=== PATIENT | female | born 1945 ===

== ENCOUNTER 2024-04-18 11:01 | Emergency (ER) | payer MEDICAID ==
[~2024-04-18] VITALS: Ht 160 cm; Wt 78.0 kg
[2024-04-18 12:00] LABS: BASOPHILS ABSOLUTE AUTO 0.06 K/mm3 (0.00-0.23); BASOPHILS PERCENT AUTO 1 % (0-2); EOSINOPHILS ABSOLUTE AUTO 0.01 K/mm3 (0.00-0.68); EOSINOPHILS PERCENT AUTO 0 % (0-6); Hematocrit 45.2 % (33.0-51.0); Hemoglobin 14.2 g/dL (11.5-16.0); IMMATURE GRAN ABSOLUTE AUTO 0.04 K/mm3 (0.00-0.10); IMMATURE GRAN PERCENT AUTO 0 % (0-1); LYMPHOCYTES ABSOLUTE AUTO 0.84 K/mm3 (0.84-5.20); LYMPHOCYTES PERCENT AUTO 7 % (21-46); MONOCYTES ABSOLUTE AUTO 0.94 K/mm3 (0.16-1.47); MONOCYTES PERCENT AUTO 7 % (4-13); Mean Corpuscular HGB 25.1 pg (26.0-34.0); Mean Corpuscular HGB Conc 31.4 g/dL (31.5-36.5); Mean Corpuscular Volume 80 fL (80-100); Mean Platelet Volume 12.5 fL (9.1-12.4); NEUTROPHILS ABSOLUTE AUTO 11.05 K/mm3 (1.96-9.15); NEUTROPHILS PERCENT AUTO 85 % (41-73); Platelet Count 202 K/mm3 (150-400); RDW Coefficient Variation 15.8 % (11.7-14.2); RDW Standard Deviation 45.4 fL (35.1-46.3); Red Blood Cell Count 5.65 M/mm3 (3.80-5.20); White Blood Cell Count 12.94 K/mm3 (4.00-11.30)
[2024-04-18 12:18] LABS: Albumin, Blood 3.6 g/dL (3.4-5.0); Albumin/Globulin Ratio 0.8 (0.8-1.8); Bilirubin, Total 1.4 mg/dL (0.1-1.0); Calcium, Blood 9.1 mg/dL (8.5-10.1); Creatinine, Blood 0.7 mg/dL (0.40-1.00); Globulin, Blood 4.4 g/dL (2.2-4.0)
[2024-04-18 12:26] LABS: Influenza A, PCR NEGATIVE (NEGATIVE); Influenza B, PCR NEGATIVE (NEGATIVE); Resp Syncytial Virus, PCR NEGATIVE (NEGATIVE); SARS-Cov-2 (COVID-19) PCR, MMC NEGATIVE (NEGATIVE)
[2024-04-18] MEDS ORDERED: MECL12.5 PO (12:51)
[2024-04-18] MEDS ORDERED: HYDR10 PO (12:51)
[2024-04-18] MEDS ORDERED: METF500 PO (12:51)
[2024-04-18] MEDS ORDERED: EZET10 PO (12:52)
[2024-04-18] MEDS ORDERED: CLOP75 PO (12:52)
[2024-04-18] MEDS ORDERED: AMLO10 PO (12:52)
[2024-04-18] MEDS ORDERED: LOSARTAN-HCTZ1 EACH PO (12:52)
[2024-04-18] MEDS ORDERED: ATOR40TA PO (12:53)
[2024-04-18] MEDS ORDERED: MONT10T PO (12:53)
[2024-04-18] MEDS ORDERED: Acetaminophen 325 MG TABLET PO ONE (14:10)
[2024-04-18] MEDS ORDERED: Ketorolac Tromethamine 30mg Vial IV ONE (14:10)
[2024-04-18] MEDS ORDERED: Azithromycin 250 MG Tab PO ONE (14:10)
[2024-04-18] MEDS ORDERED: CefTRIAXone Sodium 1,000 MG in NS 50 ML IV ONE (14:10)
[2024-04-18] MEDS ORDERED: AMOCLA875 PO (15:29)
[2024-04-18] MEDS ORDERED: AZIT250 PO (15:29)
== END 2024-04-18 16:04 | disposition home or self-care (01) ==
LOC: ER 11:01
PROVIDERS: Nurse Practitioner
DX: J18.9 Pneumonia, unspecified organism (principal); B34.9 Viral infection, unspecified; M79.10 Myalgia, unspecified site; D72.829 Elevated white blood cell count, unspecified; E11.9 Type 2 diabetes mellitus without complications; I10 Essential (primary) hypertension
CPT/HCPCS: 0241U; 70450; 71046; 80053; 82947; 84145; 84484; 85025; 93005; 93010; 96365; 96375; 99284-25; A9270; J0696; J1885

== ENCOUNTER 2024-12-14 11:30 | Emergency (ER) | payer MEDICAID ==
[~2024-12-14] VITALS: Ht 137.2 cm; Wt 73.9 kg
[~2024-12-14 11:30] MED LIST: AMLO10 PO; AMOCLA875 PO; ATOR40TA PO; AZIT250 PO; CLOP75 PO; EZET10 PO; HYDR10 PO; LOSARTAN-HCTZ1 EACH PO; MECL12.5 PO; METF500 PO; MONT10T PO
[2024-12-14 12:11] LABS: BASOPHILS ABSOLUTE AUTO 0.09 K/mm3 (0.00-0.23); BASOPHILS PERCENT AUTO 1 % (0-2); EOSINOPHILS ABSOLUTE AUTO 0.22 K/mm3 (0.00-0.68); EOSINOPHILS PERCENT AUTO 3 % (0-6); Hematocrit 39.7 % (33.0-51.0); Hemoglobin 12.6 g/dL (11.5-16.0); IMMATURE GRAN ABSOLUTE AUTO 0.03 K/mm3 (0.00-0.10); IMMATURE GRAN PERCENT AUTO 0 % (0-1); LYMPHOCYTES ABSOLUTE AUTO 2.02 K/mm3 (0.84-5.20); LYMPHOCYTES PERCENT AUTO 25 % (21-46); MONOCYTES ABSOLUTE AUTO 0.99 K/mm3 (0.16-1.47); MONOCYTES PERCENT AUTO 12 % (4-13); Mean Corpuscular HGB 26.3 pg (26.0-34.0); Mean Corpuscular HGB Conc 31.7 g/dL (31.5-36.5); Mean Corpuscular Volume 83 fL (80-100); Mean Platelet Volume 10.6 fL (9.1-12.4); NEUTROPHILS ABSOLUTE AUTO 4.91 K/mm3 (1.96-9.15); NEUTROPHILS PERCENT AUTO 59 % (41-73); Platelet Count 287 K/mm3 (150-400); RDW Coefficient Variation 16.2 % (11.7-14.2); RDW Standard Deviation 48.9 fL (35.1-46.3); Red Blood Cell Count 4.79 M/mm3 (3.80-5.20); White Blood Cell Count 8.26 K/mm3 (4.00-11.30)
[2024-12-14 12:14] LABS: Source, Urine Clean Catch
[2024-12-14 12:22] LABS: Appearance, Urine Clear (Clear); Bilirubin, Urine Neg (Neg); Blood, Urine Neg (Neg); Color, Urine Yellow (P-Yellow); Glucose Qualitative, Urine Neg (Neg); Ketones, Urine Neg (Neg); Leukocyte Esterase, Urine Neg (Neg); Nitrite, Urine Neg (Neg); Protein, Urine Neg (Neg); Urobilinogen, Urine NORM (Normal)
[2024-12-14 12:30] LABS: Albumin, Blood 3.5 g/dL (3.4-5.0); Albumin/Globulin Ratio 0.9 (0.8-1.8); Bilirubin, Total 0.7 mg/dL (0.1-1.0); Bun/Creatinine Ratio 18.8 (12.0-20.0); Calcium, Blood 9.5 mg/dL (8.5-10.1); Creatinine, Blood 0.58 mg/dL (0.40-1.00); Globulin, Blood 4.1 g/dL (2.2-4.0); Potassium, Blood 4.1 mmol/L (3.5-5.5); Total Protein, Blood 7.6 g/dL (6.4-8.2)
[2024-12-14] MEDS ORDERED: COLACE100 MG PO (14:33)
[2024-12-14] MEDS ORDERED: ALBU90OI INH (14:55)
[2024-12-14] MEDS ORDERED: OxyCODONE HCL 5 MG TAB PO ONE (15:10)
[2024-12-14] MEDS ORDERED: MIRALAX17 GM PO (15:13)
[2024-12-14] MEDS ORDERED: OXAYDO5 M1 PO (15:13)
== END 2024-12-14 15:27 | disposition home or self-care (01) ==
LOC: ER 11:30
PROVIDERS: Physician Assistant
DX: R10.9 Unspecified abdominal pain (principal); C76.2 Malignant neoplasm of abdomen; I10 Essential (primary) hypertension; E11.9 Type 2 diabetes mellitus without complications; Z79.84 Long term (current) use of oral hypoglycemic drugs; Z79.899 Other long term (current) drug therapy; Z79.02 Long term (current) use of antithrombotics/antiplatelets; Z88.0 Allergy status to penicillin
CPT/HCPCS: 74177; 80053; 81003; 83605; 85025; 99284-25; A9270; Q9967

== ENCOUNTER 2025-01-14 12:52 | Emergency (ER) | payer MEDICARE, OTHER ==
[~2025-01-14] VITALS: Ht 160 cm; Wt 83.9 kg
[~2025-01-14 12:52] MED LIST changes: +ALBU90OI INH; +COLACE100 MG PO; +MIRALAX17 GM PO; +OXAYDO5 M1 PO
[2025-01-14 14:02] LABS: BASOPHILS ABSOLUTE AUTO 0.02 K/mm3 (0.00-0.23); BASOPHILS PERCENT AUTO 0 % (0-2); EOSINOPHILS ABSOLUTE AUTO 0.01 K/mm3 (0.00-0.68); EOSINOPHILS PERCENT AUTO 0 % (0-6); Hematocrit 35.3 % (33.0-51.0); Hemoglobin 11.5 g/dL (11.5-16.0); IMMATURE GRAN ABSOLUTE AUTO 0.08 K/mm3 (0.00-0.10); IMMATURE GRAN PERCENT AUTO 1 % (0-1); LYMPHOCYTES ABSOLUTE AUTO 0.58 K/mm3 (0.84-5.20); LYMPHOCYTES PERCENT AUTO 4 % (21-46); MONOCYTES ABSOLUTE AUTO 0.98 K/mm3 (0.16-1.47); MONOCYTES PERCENT AUTO 7 % (4-13); Mean Corpuscular HGB 26.1 pg (26.0-34.0); Mean Corpuscular HGB Conc 32.6 g/dL (31.5-36.5); Mean Corpuscular Volume 80 fL (80-100); Mean Platelet Volume 9.9 fL (9.1-12.4); NEUTROPHILS ABSOLUTE AUTO 12.19 K/mm3 (1.96-9.15); NEUTROPHILS PERCENT AUTO 88 % (41-73); Platelet Count 452 K/mm3 (150-400); RDW Coefficient Variation 15.1 % (11.7-14.2); RDW Standard Deviation 43.7 fL (35.1-46.3); Red Blood Cell Count 4.41 M/mm3 (3.80-5.20); White Blood Cell Count 13.86 K/mm3 (4.00-11.30)
[2025-01-14 14:20] LABS: Albumin, Blood 3.2 g/dL (3.4-5.0); Albumin/Globulin Ratio 0.8 (0.8-1.8); Bilirubin, Total 0.5 mg/dL (0.1-1.0); Bun/Creatinine Ratio 32.6 (12.0-20.0); Calcium, Blood 8.6 mg/dL (8.5-10.1); Creatinine, Blood 0.64 mg/dL (0.40-1.00); Globulin, Blood 4.2 g/dL (2.2-4.0); Potassium, Blood 4.8 mmol/L (3.5-5.5); Total Protein, Blood 7.4 g/dL (6.4-8.2)
[2025-01-14] MEDS ORDERED: ALBU3IS INH (16:24)
[2025-01-14] MEDS ORDERED: ALBU90OI INH (16:24)
[2025-01-14] MEDS ORDERED: AZIT250 PO (16:25)
== END 2025-01-14 17:04 | disposition home or self-care (01) ==
LOC: ER 12:52
PROVIDERS: Physician Assistant
DX: J18.9 Pneumonia, unspecified organism (principal); R18.8 Other ascites; I10 Essential (primary) hypertension; E11.9 Type 2 diabetes mellitus without complications; Z88.0 Allergy status to penicillin; Z79.83 Long term (current) use of bisphosphonates; Z79.84 Long term (current) use of oral hypoglycemic drugs; Z79.899 Other long term (current) drug therapy; Z79.02 Long term (current) use of antithrombotics/antiplatelets; Z79.811 Long term (current) use of aromatase inhibitors; Z79.51 Long term (current) use of inhaled steroids; Z79.891 Long term (current) use of opiate analgesic; Z79.1 Long term (current) use of non-steroidal anti-inflammatories (NSAID); C79.9 Secondary malignant neoplasm of unspecified site; R10.9 Unspecified abdominal pain; C78.7 Secondary malignant neoplasm of liver and intrahepatic bile duct; C78.6 Secondary malignant neoplasm of retroperitoneum and peritoneum; I51.7 Cardiomegaly; E27.8 Other specified disorders of adrenal gland; I25.10 Atherosclerotic heart disease of native coronary artery without angina pectoris; I70.0 Atherosclerosis of aorta; J98.11 Atelectasis; K76.89 Other specified diseases of liver; K57.90 Diverticulosis of intestine, part unspecified, without perforation or abscess without bleeding; M46.04 Spinal enthesopathy, thoracic region; R91.8 Other nonspecific abnormal finding of lung field; R59.9 Enlarged lymph nodes, unspecified
CPT/HCPCS: 71260; 74177; 80053; 85025; 99284; Q9967

== ENCOUNTER 2025-02-12 05:52 | Day surgery (SDC) | payer MEDICARE, OTHER ==
[2025-02-12] VITALS (9 sets, daily range): BP systolic 152–180; BP diastolic 73–96
[~2025-02-12] VITALS: Ht 144.8 cm; Wt 79.8 kg
[~2025-02-12 05:52] MED LIST changes: +ALBU3IS INH; +ERGO50000 PO; +LORA10ER PO; +LOSA50 PO; +ONDA4 PO; +POTA10T PO
[2025-02-12] MEDS ORDERED: Lactated Ringer's 1,000 ML IV SCH (06:25)
[2025-02-12] MEDS ORDERED: CeFAZolin Sodium 2,000 MG in NS 100 ML IV SCH (06:25)
[2025-02-12] MEDS ORDERED: Lidocaine HCl 1% 30 ML SDV ONE (06:56)
[2025-02-12] MEDS ORDERED: CeFAZolin Sodium 2,000 MG VIAL ONE (07:10)
--- NOTE | 2025-02-12 07:15 | NUR ---
History, Chart, Medications and Allergies reviewed before start of procedure. Lungs clear T/O to Auscultation. Patient confirms NPO status and agrees with scheduled surgery. Pre-Op teaching done. Pt verbalizes understanding. Patient reports completing Chlorhexadine shower X2 prior to admission to hospital.
[2025-02-12] MEDS ORDERED: Etomidate 2MG / ML 10ML Vial ONE (07:30)
[2025-02-12] MEDS ORDERED: FentaNYL Citrate 50 MCG/ML 2 ML Injection ONE (07:31)
[2025-02-12] MEDS ORDERED: Ondansetron HCl 2 MG / ML 2ML Vial ONE (07:41)
[2025-02-12] MEDS ORDERED: Dexamethasone Sod Phos 10 MG/ML 1ML VIAL ONE (07:41)
[2025-02-12] MEDS ORDERED: HYDROmorphone HCl/Pf 1MG SYR IV PRN (07:55)
[2025-02-12] MEDS ORDERED: Metoclopramide HCl 5MG / ML 2ML Vial IV PRN (07:55)
[2025-02-12] MEDS ORDERED: Ondansetron HCl 2 MG / ML 2ML Vial IV PRN (07:55)
[2025-02-12] MEDS ORDERED: Labetalol HCL 5 MG/ML 4ML Injection (Single Dose) IV PRN (07:55)
[2025-02-12] MEDS ORDERED: Albuterol 2.5 MG/3 ML VIAL INH PRN (07:55)
[2025-02-12] MEDS ORDERED: FentaNYL Citrate 50 MCG/ML 2 ML Injection IV PRN ×2 (07:55→08:00)
[2025-02-12] MEDS ORDERED: Morphine Sulfate 4 MG/1 ML Injection IV PRN (07:55)
[2025-02-12] MEDS ORDERED: OxyCODONE 5 mg/Acetamin 325 mg TABLET PO PRN (08:40)
--- NOTE | 2025-02-12 09:02 | NUR ---
PT SOB. HOB ELEVATED PT ABD VERY DISTENDED D/T ACITES. PT STATES SHE HAS NEVER HAD PARACENTESIS. PT STATES SOB IS WORSE SITTING UP. PT STATES SHE DOES NOT HAVE A PCP AND WILL SEE HER ONCOLOGIST IN 2 WEEKS.
--- NOTE | 2025-02-12 09:46 | NUR ---
PT ASKING IF SHE HAD THE SURGERY ALREADY. MIRROR USED TO SHOW PT HER INCISIONS AND EXPLAINED TO PT THAT IS WHY HER NECK HURTS. PT ENCOURAGE AGAIN TO TALK W/ HER ONC. ABOUT SOB AND DEPENDENT EDEMA IN HER BACK AREA. Patient up to Ambulate independently. Gait steady. Discharge instructions reviewed with patient. Patient verbalizes understanding. Copy given to patient to take home. Discharged via wheelchair to private car for ride home.
== END 2025-02-12 09:40 | disposition home or self-care (01) ==
LOC: ORSCMMR 05:52 → ORD 07:30 → ORSCMMR 07:30
PROVIDERS: Surgery
PROC: 05HM33Z Insertion of Infusion Device into Right Internal Jugular Vein, Percutaneous Approach (ICD-10-PCS; principal; 2025-02-12 07:30)
PROC: 0JH63WZ Insertion of Totally Implantable Vascular Access Device into Chest Subcutaneous Tissue and Fascia, Percutaneous Approach (ICD-10-PCS; principal; 2025-02-12 07:30)
PROC: B543ZZA Ultrasonography of Right Jugular Veins, Guidance (ICD-10-PCS; principal; 2025-02-12 07:30)
DX: C23 Malignant neoplasm of gallbladder (principal); R18.0 Malignant ascites; E11.9 Type 2 diabetes mellitus without complications; I10 Essential (primary) hypertension; J45.909 Unspecified asthma, uncomplicated; Z79.84 Long term (current) use of oral hypoglycemic drugs; Z79.899 Other long term (current) drug therapy; Z87.891 Personal history of nicotine dependence; E66.9 Obesity, unspecified; Z68.38 Body mass index [BMI] 38.0-38.9, adult; G47.33 Obstructive sleep apnea (adult) (pediatric); K21.9 Gastro-esophageal reflux disease without esophagitis
CPT/HCPCS: 77001; 82947; 93005; 93010; A9270; C1788; J0690; J1100; J1171; J1642; J2405; J3010; J7120